=== PATIENT | female | born 1980 | race Caucasian/White ===

== ENCOUNTER 2021-12-07 18:38 | Emergency (ER) | payer BC, MEDICAID ==
[~2021-12-07] VITALS: Ht 170.2 cm; Wt 79.0 kg
[2021-12-07] MEDS ORDERED: LIDOcaine 1% W/epiNEPHrine 1:200,000 10ml vial IJ ONE (21:20)
[2021-12-07] MEDS ORDERED: HYDROcodone/acetaminophen 10/325mg tab PO ONE (21:20)
[2021-12-07] MEDS ORDERED: LIDOcaine 1% W/epiNEPHrine 1:100,000 20ml vial IJ ONE (21:25)
[2021-12-07 21:32] VITALS: BP 116/69
[2021-12-07] MEDS ORDERED: CLIN300C54 PO (21:33)
[2021-12-07] MEDS ORDERED: clindamycin 150mg capsule PO ONE (21:35)
[2021-12-07] MEDS ORDERED: ibuprofen tablet 400 MG TABLET PO ONE (21:45)
== END 2021-12-07 22:10 | disposition home or self-care (01) ==
LOC: ER 18:39
DX: N75.0 Cyst of Bartholin's gland (principal)
CPT/HCPCS: 56420; 99284